=== PATIENT | female | born 1945 | race African-American/Black ===

== ENCOUNTER → 2021-02-03 | Day surgery (SDC) | payer OTHER ==
[~2021-02-03] MED LIST: FISH OIL 1,001000 M3 PO; FLUTICASONE PRO30 G1 TOP; FOSINOPRIL 10 M10 M1 PO; HUMALOG100 UNIT/1 SUBQ; HYDRALAZINE 2525 M1 PO; LANTUS SUBQ; LASIX 80 MG TAB80 MG PO; MINOXIDIL2.5 MG PO; NORCO5 PO; NORVASC10 MG PO; OMEPRAZOLE40 MG PO; PRAVACHOL40 MG PO; RENAGEL800 MG PO; SINGULAIR 10 MG10 MG PO; VICTOZA 3-0.6 MG/0.1 SUBQ; aggrenox PO
[2021-02-03 08:24] LABS: HEMATOCRIT 39.5 % (37.0-47.0); HEMOGLOBIN 12.4 gm/dL (12.0-15.0); MCH 23.1 pg (26.0-34.0); MCHC 31.6 g/dL (28.0-37.0); MCV 73.1 fL (80.0-100.0); MPV 8.8 fl. (7.2-11.1); RBC 5.4 mil/uL (4.20-5.00); RDW-CV 16.7 % (10.5-14.5); WBC 6.8 thou/uL (4.0-11.0)
[2021-02-03 08:34] LABS: CALCIUM 9.2 mg/dL (8.5-10.1); CREATININE 3.4 mg/dL (0.6-1.3); POTASSIUM 4.9 mmol/L (3.5-5.1)
[2021-02-03 08:39] LABS: ALBUMIN 3.6 g/dL (3.4-5.0); TOTAL BILIRUBIN 0.4 mg/dL (<0.1-1.0); TOTAL PROTEIN 8.1 g/dL (6.4-8.2)
--- NOTE | 2021-02-03 09:45 | EKG ---
[place] [address] ELECTROCARDIOGRAM REPORT Name: LOYDATRACEY Room: [facility].#: [id number] Admission: 02/03/21 Attend Phys: Sal Sales Discharge: Date of : 41 Date of Service: 02/03/21822 Report #: [id number] THIS REPORT FOR: //name// [facility] Test Date: 2021-02-03 Test Time: 08:23:24 Pat Name: TRACEY SCALES Department: Room: Gender: Liv[employer]: : 1945 Requested By: Meme Islas Order Number: [id number] Reading MD: Omer An Measurements Intervals [place] Rate: 82 P: 36 DE: 220 QRS: -20 QRSD: 82 T: 128 QT: 390 QTc: 456 Interpretive Statements Sinus rhythm Prolonged DE interval Consider left atrial enlargement Probable LVH with secondary repol abnrm Inferior infarct, old Baseline wander in lead(s) II,III,aVF,V2 No previous ECG available for comparison Electronically Signed On 02-03-2021 9:45:17 CDT by Omer An [email or web address] <ELECTRONICALLY SIGNED> By: Omer An MD, [facility] 02/03/21 0945 2 2 Omer An MD, [facility] /EPI
--- NOTE | 2021-02-05 09:07 | OP ---
[facility] [address] [place] [address] OPERATIVE REPORT Name: TRACEY SCALES Room: [facility].#: [id number] Admission: 02/03/21 Attend Phys: Sal Bolton Discharge: Date of : 41 Report #: [id number] THIS REPORT FOR: cc: Nate Osorio MD, Matthew S. MD Patterson, Jonathan D. MD ~ DOC #: [id number] Sal Bolton MD DATE OF SURGERY: 02/03/2021 PREOPERATIVE DIAGNOSIS: End-stage renal disease. POSTOPERATIVE DIAGNOSIS: End-stage renal disease. OPERATIONS: 1. Laparoscopic placement of tunneled intraperitoneal catheter. 2. Laparoscopic omentopexy. SURGEON: Sal Bolton MD ANESTHESIA: General. ESTIMATED BLOOD LOSS: Minimal. SPECIMENS: None. DESCRIPTION OF PROCEDURE: After informed consent was obtained, the patient was brought to the operating room and placed supine. SCDs were placed and working, preoperative antibiotics were administered, general anesthesia was induced. The abdomen was prepped and draped in the usual sterile fashion. A 5 mm incision was made in the left upper quadrant. A 5 mm trocar was placed under direct vision. Pneumoperitoneum was established. Left-sided 5 mm trocar was placed. The omentum was then grasped and brought up to the right upper quadrant of the abdomen. It was a 2-0 Vicryl on a suture passer was used to place a suture through the fascia, through the omentum and then back out through the skin. It was tied down, thereby completing the omentopexy. A left-sided 8 mm trocar was placed under direct vision. This was in the left rectus sheath above the umbilicus. A 62 cm Covidien catheter was placed. The catheter was then tunneled into the left upper quadrant of the abdomen. It flushed easily with 750 mL of heparinized saline and drained easily as well. The ports were removed under direct vision. The skin was closed with 4-0 Monocryl. Incisions were sealed with Steri-Strips. COMPLICATIONS: None. DISPOSITION: The patient was taken to [place] [address] OPERATIVE REPORT Name: TRACEY SCALES Room: [facility]#: [id number] Admission: 02/03/21 Attend Phys: Sal Bolton Discharge: Date of : 41 Report #: [id number] Sal Bolton MD JDP/JANEY/SOT <ELECTRONICALLY SIGNED> By: Sal Bolton MD 02/05/21 0907 [id number] Hakeem Bolton MD /nt
== END | disposition home or self-care (01) ==
LOC: M.SUR 05:22
PROVIDERS: Anesthesiology; ATTEND Surgery
DX: I12.0 Hypertensive chronic kidney disease with stage 5 chronic kidney disease or end stage renal disease (principal); E11.22 Type 2 diabetes mellitus with diabetic chronic kidney disease; N18.6 End stage renal disease; J45.909 Unspecified asthma, uncomplicated; G47.30 Sleep apnea, unspecified; Z98.890 Other specified postprocedural states; Z79.899 Other long term (current) drug therapy; Z86.73 Personal history of transient ischemic attack (TIA), and cerebral infarction without residual deficits; Z98.41 Cataract extraction status, right eye; Z98.42 Cataract extraction status, left eye; Z90.711 Acquired absence of uterus with remaining cervical stump